=== PATIENT | male | born 1990 | race Caucasian/White ===

== ENCOUNTER 2024-12-04 16:32 | Emergency (ER) | payer OTHER, SELFPAY ==
[2024-12-04 16:51] VITALS: BP 146/103; PULSE 102; RESP 16; TEMP 36.5; O2SAT 98
--- NOTE | 2024-12-04 16:52 | ED.UPPEXIN ---
HPI - Extremity Injury (Upper) General Chief Complaint: Extremity Injury, Upper Stated Complaint: L HAND INJURY Time Seen by Provider: 12/04/24 16:53 Source: patient Mode of arrival: ambulatory Limitations: no limitations History of Present Illness HPI narrative: 34 year old male who presents to [facility] care with complaints of being hit by the rubber pad off of a organ grinder at work on the dorsal aspect of his left hand with swelling noted and an abrasion on the hand. Injury occurred while at work at about 1600. Patient reports that rubber pad flew off of organ grinder that is used on metal and was rotating at high speed hit his left hand hard. Patient has removed his silver band from his left ring finger and put in his right front pocket. Patient has applied ice to his left hand MD complaint: injury to: left and hand Onset (ago): hour(s) (1600) Other injuries: none Handedness: right Place: work Severity scale (1-10): 3 Associated symptoms: other (swelling and abrasion to dorsal aspect of left hand) Treatments prior to arrival: cold therapy Review of Systems Review of Systems: CONSTITUTIONAL: Denies fever, chills, or sweats. EYES: Denies visual changes, redness, or discharge. ENT: Denies rhinorrhea, congestion, sore throat, or otalgia. CARDIOVASCULAR: Denies chest pain, palpitations, or edema. RESPIRATORY: Denies cough or dyspnea. GASTROINTESTINAL: Denies abdominal pain, nausea, vomiting, or diarrhea. GENITOURINARY: Denies dysuria or hematuria. SKIN: Denies rash or itching. MUSCULOSKELETAL: Denies back pain, positive for swelling and pain to left dorsal hand with abrasion noted to top of area of swelling dorsal left hand, or myalgia. NEUROLOGIC: Denies headache, numbness, or weakness. PSYCHIATRIC: Denies anxiety or depression. All systems reviewed & are unremarkable except as noted in HPI and below [facility] Surgical History Surgical History (Updated 12/06/24 @ 15:57 by Zina Joyner NP) H/O oral surgery Social History Social History (Updated 12/06/24 @ 15:57 by Zina Joyner NP) Smoking status: Never smoker Alcohol intake: current Alcohol use details: social Substance use type: does not use Living arrangements: with family Gender identity (if verbalized by the patient): Male Comments At time of signature, agree with nursing past medical, surgical, social and family history. There is no relevant family history pertinent to the presenting complaint Exam Narrative: GENERAL: Well-appearing, well-nourished, and in no acute distress. HEAD: Normocephalic, atraumatic. EYES: PERRLA and EOMI. ENT: Nares clear, no rhinorrhea or epistaxis. Mucous membranes moist. NECK: Supple, no lymphadenopathy. CHEST: Clear to auscultation. No respiratory distress. no cough noted SAO2 98% on room air HEART: Regular rate and rhythm. No murmur heard. Normal peripheral pulses. ABDOMEN: Soft, nontender, nondistended, normal active bowel sounds. EXTREMITIES: Normal range of motion. No edema. Exception noted to swelling to dorsal left hand where he was hit by a pad that flew off of a organ grinder with abrasion noted to tissue in the inner aspect of swelling. Patient is able to to move all fingers of left hand on own power reports ome discomfort to dorsal left hand denies any tingling or numbness to hand or fingers, strong left radial pulse. SKIN: Warm, dry, no rash. NEURO: No focal deficits. Alert and oriented x3.noted to tissue in the inner aspect of swelling. Patient is able to to move all Course Course Emergency Course: Patient is aware of diagnosis, understands and agrees to treatment plan.? Anticipatory guidance given.? Patient agrees to follow-up as directed and is aware of reasons to seek care at the emergency department. Portions of this record may have been created with voice recognition software Level of Care: Express Care Visit Vital Signs Vital signs: Vital Signs Temperature 36.5 C 12/04/24 16:51 Pulse Rate 102 H 12/04/24 16:51 Respiratory Rate 16 12/04/24 16:51 Blood Pressure 146/103 H 12/04/24 16:51 Pulse Oximetry 98 12/04/24 16:51 Temperature 36.5 C 12/04/24 16:51 Pulse Rate 102 H 12/04/24 16:51 Respiratory Rate 16 12/04/24 16:51 Blood Pressure 146/103 H 12/04/24 16:51 Pulse Oximetry 98 12/04/24 16:51 Reviewed MDM - Extremity Injury (Upper) Differential Diagnosis Differential diagnosis: Likely fracture of hand and other (contusion of left hand, swelling of left hand, abrasion of left hand) Medical Records Attestation: I reviewed the patient's medical records. Imaging Data Attestation: I personally reviewed and interpreted this imaging study as follows: My impression: no fracture Radiologist's impression: Launch?[facility] [place] [id number] [place] [address] XRay Report Signed Patient: Frankie Jin : 1990 MR#: [id number] Age: 34 Acct:[id number] Loc: [facility] ADM Date: 12/04/24Attending Dr: Ordering Physician: Zina Joyner APRN Date of Service: 12/04/24 Procedure(s): XR hand LT min 3V Accession Number(s): [id number] cc: Mariana,Salvador; Zina Joyner APRN~ EXAMINATION: XR hand LT min 3V DATE: 12/04/2024 16:51 INDICATION: Left hand injury. TECHNIQUE: 3 views of left hand were obtained. COMPARISON: None. FINDINGS: Alignment is normal. No fracture. Joint spaces are normal. IMPRESSION: 1. No fracture. Reviewed, dictated and finalized at location A. [employer] TECHNICIAN Please be advised this is a medical document. It is intended for icnu-ah-vser communication. It is written in medical language and may contain unfamiliar abbreviations or verbiage. Medical documents are intended to carry relevant information, facts as evident, and the clinical opinion of the practitioner at the time of the encounter. This report may have been done utilizing a voice recognition system. Attempts have been made to correct errors. However, there may be uncorrected grammatical, spelling, and recognition errors present. The file time of this note does not necessarily represent the time of service. Dictated By: Sherwin Mathew MD 12/04/24 7118 Signed By: <Electronically signed by Sherwin Mathew MD in OV> Critical Care Time Critical Care Time Critical Care Time: No Discharge Plan Discharge Clinical Impression: Contusion of dorsum of left hand Abrasion of hand, left Qualifiers: Encounter type: initial encounter Qualified Code(s): S60.512A - Abrasion of left hand, initial encounter Patient Disposition: Home, Self-Care Condition: Stable Instructions: Antibiotic Form, Contusion in Adults (ED) Additional Instructions: Wash left dorsal hand with liquid dial soap twice daily, apply bacitracin ointment and apply band-aide watch for any infection--redness, swelling, drainage Tylenol Ibuprofen or Naproxen for any fevers or pain follow up with PCP in 7-10 days for a wound check recheck if develop fever, chills, increasing symptom Go to the ER if your symptoms become worse of if ANY new symptoms develop May use ice for comfort measure and to decrease swelling of left dorsal hand If your symptoms persist, change or worsen significantly before you can contact your personal physician then please, without delay, go to the emergency department for further evaluation. Follow-up with PCP in 7-10 days or sooner if needed Follow up with PCP soon in regards to your blood pressure which is elevated above threshold for referral. Blood pressure above 120/80 may indicate pre-hypertension. 146/103 Patient Language: Chinese Follow-up/Referrals: Mariana,Salvador [Other] Time of Disposition: 17:10 Quality Maurisio Coma Scale Eyes: Open Verbal: Oriented and Alert Motor: Follows Commands [place] Coma Total Score: 15
== END 2024-12-04 17:29 | disposition home or self-care (01) ==
PROVIDERS: Emergency Provider Registered Nurse
DX: S60.222A Contusion of left hand, initial encounter (principal); W20.8XXA Other cause of strike by thrown, projected or falling object, initial encounter; Y99.0 Civilian activity done for income or pay; S60.512A Abrasion of left hand, initial encounter
CPT/HCPCS: 73130; 99203; G0463